=== PATIENT | female | born 1990 | race African-American/Black ===

== ENCOUNTER 2019-08-26 00:31 | Emergency (ER) | payer MEDICAID ==
[~2019-08-26] VITALS: Ht 167.6 cm; Wt 55.0 kg
[2019-08-26] MEDS ORDERED: IBUPROFEN 600MG TABLET PO SCH (01:27)
[2019-08-26] MEDS ORDERED: ACETAMINOPHEN 325MG TABLET PO SCH (01:27)
[2019-08-26 02:52] LABS: *AMPHETAMINES SCREEN URINE NEGATIVE (NEGATIVE); *BARBITURATES SCREEN URINE NEGATIVE (NEGATIVE); *BENZODIAZEPINES SCREEN URINE NEGATIVE (NEGATIVE); *COCAINE SCREEN URINE NEGATIVE (NEGATIVE); METHADONE URINE SCREEN NEGATIVE (NEGATIVE)
[2019-08-26 02:53] LABS: OPIATES URINE SCREEN NEGATIVE (NEGATIVE); PHENCYCLIDINE URINE SCREEN NEGATIVE (NEGATIVE)
[2019-08-26 02:59] LABS: CANNABINOID URINE SCREEN PRESUMTIVE POSITIVE (NEGATIVE)
[2019-08-26 04:50] LABS: BASOPHILS % 0.6 % (0.0-2.0); EOSINOPHILS % 2.4 % (0.0-5.0); HEMATOCRIT. 30.1 % (36.0-48.0); LYMPHOCYTES % 32.6 % (20.0-50.0); MEAN CORPUSCULAR HEMOGLOBIN 27.8 pg (28.0-32.0); MEAN CORPUSCULAR VOLUME 83.5 fL (81.0-99.0); MEAN PLATELET VOLUME 7.6 fl (7.4-10.4); NEUTROPHILS % 54.4 % (40.0-76.0); PLATELET 292 x1000/uL (130-400); RED BLOOD CELL COUNT 3.61 mill/uL (4.2-5.4); RED CELL DISTRIBUTION WIDTH 16.5 % (11.6-14.6)
[2019-08-26 05:07] LABS: CHLORIDE 108 mEq/L (98-107)
[2019-08-26 05:11] LABS: ETHANOL BLOOD < 10 mg/dL
[2019-08-26 10:28] VITALS: BP 111/73
== END 2019-08-26 10:36 | disposition home or self-care (01) ==
LOC: ER 01:10
DX: M79.18 Myalgia, other site (principal); R52 Pain, unspecified; D57.1 Sickle-cell disease without crisis; Z59.0 Homelessness; E11.9 Type 2 diabetes mellitus without complications; I10 Essential (primary) hypertension; F17.200 Nicotine dependence, unspecified, uncomplicated
CPT/HCPCS: 36415; 71045; 80305; 80320; 81025; 85044; 99284; G0480